=== PATIENT | female | born 1970 | race Hispanic/Latino ===

== ENCOUNTER 2018-04-06 09:40 | Outpatient (CLI) | payer OTHER ==
--- NOTE | 2018-04-06 12:57 | Mammography Report ---
BILATERAL DIGITAL SCREENING MAMMOGRAM with CAD : 04/06/18 09:40:00 CLINICAL: Routine screening. COMPARISON:03/31/17 FINDINGS: The breasts are heterogeneously dense, which may obscure small masses.Bilateral outer biopsy clips. No mass, architectural distortion or suspicious calcifications. IMPRESSION: No mammographic evidence of malignancy. BI-RADS CATEGORY: 2 -- Benign RECOMMENDATION: Routine mammographic screening in one year. COMMENT: Patient follow-up letters are generated by our [employer] application.
--- NOTE | 2018-05-04 11:47 | Mammography Report ---
BILATERAL DIGITAL SCREENING MAMMOGRAM with CAD and BILATERAL DIGITAL BREAST TOMOSYNTHESIS (DBT) : 04/06/18 CLINICAL: Routine screening.Note that this dictation is a replacement for a previous report which did not include the tomosynthesis portion of the exam. COMPARISON:03/31/17 FINDINGS: The breasts are heterogeneously dense, which may obscure small masses. Several right asymmetries are identified only on the stepan views and require additional imaging. No architectural distortion or suspicious calcifications. The left breast is negative. IMPRESSION: Right parenchymal asymmetries requiring additional workup. BI-RADS CATEGORY: 0 - - Needs Additional Imaging RECOMMENDATION: Recall for right global breast ultrasound. COMMENT: Patient follow-up letters are generated by our [employer] application.
== END 2018-04-06 09:41 | disposition home or self-care (01) ==
LOC: SPVWC 09:40
PROVIDERS: ATTEND Surgery
DX: Z12.31 Encounter for screening mammogram for malignant neoplasm of breast (principal)
CPT/HCPCS: 77063; 77067

== ENCOUNTER 2018-05-15 07:50 | Outpatient (CLI) | payer OTHER ==
--- NOTE | 2018-05-15 11:23 | Ultrasound Report ---
RIGHT BREAST ULTRASOUND: 05/15/18 07:50:00 CLINICAL: Right breast asymmetries on recent screening tomosynthesis. COMPARISON: 04/06/18 mammogram FINDINGS: Ultrasound of the right breast(including all four quadrants and the retroareolar area) was performed and demonstrated multiple benign cysts and no solid mass or shadowing. The cyst correlate with mammographic asymmetries. An irregular cyst at 3 o'clock 6 cm from the nipple measures 8 x 6 x 5 mm and a slightly irregular cyst at 12 o'clock 2 cm from the nipple measures 10 x 6 x 4 mm. IMPRESSION: Benign cysts and no suspicious finding. BI-RADS 2 - - Benign RECOMMENDATION: Routine mammographic screening in one year.
== END 2018-05-15 07:51 | disposition home or self-care (01) ==
LOC: SPVWC 07:50
PROVIDERS: ATTEND Surgery
DX: N60.01 Solitary cyst of right breast (principal)

== ENCOUNTER 2019-04-10 09:01 | Outpatient (CLI) | payer OTHER ==
--- NOTE | 2019-04-10 10:54 | Mammography Report ---
DIGITAL SCREENING MAMMOGRAM WITH CAD, 04/10/2019 INDICATION: Routine screening mammography. TECHNIQUE: Digital bilateral 2D mammography was obtained in the craniocaudal and mediolateral obliq ue projections. This examination was interpreted with the benefit of Computer-Aided Detection analysi s. COMPARISON: 04/06/2018 FINDINGS: Breast Density: The breasts are heterogeneously dense, which may obscure small masses. There is no evidence of dominant mass, suspicious calcifications or architectural distortion in eithe r breast. A left outer biopsy clip and a right outer biopsy clip. IMPRESSION: No mammographic evidence of malignancy. Follow up recommendation: Routine yearly BI-RADS Category 2: Benign. A "normal" or negative report should not discourage follow up or biopsy of a clinically significant f inding. A written summary of these findings will be mailed to the patient. The patient will be entered into a mammography reporting system which will generate a reminder letter for the patient's next appointmen t at the appropriate interval. The [employer] recommends yearly mammograms starting at age 40 and continuing as l bryan as a woman is in good health. Breast MRI is recommended for women with an approximate 20-25% or greater lifetime risk of breast cancer, including women with a strong family history of breast or ova haylie cancer or who have been treated for Hodgkin's disease. Signer Name: Royer Chiu MD Signed: 04/10/2019 10:50 AM Workstation Name: [id number]
== END 2019-04-10 09:02 | disposition home or self-care (01) ==
LOC: SPVWC 09:01
PROVIDERS: ATTEND Surgery
DX: Z12.31 Encounter for screening mammogram for malignant neoplasm of breast (principal)
CPT/HCPCS: 77067